=== PATIENT | female | born 1975 | race American Indian/Alaskan Native ===

== ENCOUNTER 2017-06-12 10:41 | Outpatient (CLI) | payer OTHER ==
--- NOTE | 2017-06-12 14:33 | Mammography Report ---
BILATERAL DIGITAL SCREENING MAMMOGRAM with CAD : 06/12/17 10:41:00 CLINICAL: Routine screening.Previous right benign surgical excision. COMPARISON:05/25/09 FINDINGS: The breasts are heterogeneously dense, which may obscure small masses.A previously identified right outer mass is no longer present. Both breasts are much smaller suggesting that she may have had a reduction mammoplasty. Scattered bilateral benign calcifications. No mass, architectural distortion or suspicious calcifications. IMPRESSION: No mammographic evidence of malignancy. BI-RADS CATEGORY: 2 -- Benign RECOMMENDATION: Routine mammographic screening in one year. COMMENT: Patient follow-up letters are generated by our [employer] application.
== END 2017-06-12 10:42 | disposition home or self-care (01) ==
LOC: SPVWC 10:41
PROVIDERS: ATTEND Hospitalist
DX: Z12.31 Encounter for screening mammogram for malignant neoplasm of breast (principal)
CPT/HCPCS: 77067; G0202